=== PATIENT | female | born 1995 | race Two or more races ===

== ENCOUNTER 2019-11-09 10:15 | Observation (INO) | payer MEDICAID ==
[~2019-11-09] VITALS: Ht 154.9 cm; Wt 64.0 kg
[2019-11-09] MEDS ORDERED: PREN-96 PO (10:48)
[2019-11-09] MEDS ORDERED: TERBUTALINE SULFATE 1 MG/ML 1ML VIAL SC ONE ×2 (11:15→11:35)
== END 2019-11-09 12:25 | disposition home or self-care (01) | DRG 563 ==
LOC: LDRP 10:15
PROVIDERS: ADMIT Obstetrics & Gynecology; ATTEND Obstetrics & Gynecology
DX: O60.03 Preterm labor without delivery, third trimester (principal); Z3A.30 30 weeks gestation of pregnancy
CPT/HCPCS: 59025; 81002; 96372; G0378; J3105

== ENCOUNTER 2019-11-15 12:07 | Observation (INO) | payer MEDICAID ==
[~2019-11-15 12:07] MED LIST: PREN-96 PO
[2019-11-15] MEDS ORDERED: NIF10C PO (12:33)
== END 2019-11-15 13:15 | disposition home or self-care (01) | DRG 563 ==
LOC: LDRP 12:07
PROVIDERS: ADMIT Specialist; ATTEND Specialist
DX: O60.03 Preterm labor without delivery, third trimester (principal); Z3A.31 31 weeks gestation of pregnancy
CPT/HCPCS: 59025; 81002; G0378

== ENCOUNTER 2019-11-22 11:00 | Observation (INO) | payer MEDICAID ==
[~2019-11-22 11:00] MED LIST changes: +NIF10C PO
== END 2019-11-22 12:00 | disposition home or self-care (01) | DRG 563 ==
LOC: LDRP 11:00
PROVIDERS: ADMIT Specialist; ATTEND Specialist
DX: O60.03 Preterm labor without delivery, third trimester (principal); Z3A.32 32 weeks gestation of pregnancy
CPT/HCPCS: 59025; 81002; G0378

== ENCOUNTER 2019-11-29 11:50 | Observation (INO) | payer MEDICAID | END 2019-11-29 12:55 | disposition home or self-care (01) | DRG 563 | LOC: LDRP 11:50 | PROVIDERS: ADMIT Obstetrics & Gynecology; ATTEND Obstetrics & Gynecology | DX: O60.03 Preterm labor without delivery, third trimester (principal); Z3A.33 33 weeks gestation of pregnancy; Z87.891 Personal history of nicotine dependence | CPT/HCPCS: 59025; 81002; G0378 ==

== ENCOUNTER 2019-12-06 11:10 | Observation (INO) | payer MEDICAID | END 2019-12-06 12:10 | disposition home or self-care (01) | DRG 563 | LOC: LDRP 11:10 | PROVIDERS: ADMIT Obstetrics & Gynecology; ATTEND Obstetrics & Gynecology | DX: O60.03 Preterm labor without delivery, third trimester (principal); O99.613 Diseases of the digestive system complicating pregnancy, third trimester; K21.9 Gastro-esophageal reflux disease without esophagitis; Z3A.34 34 weeks gestation of pregnancy; Z87.891 Personal history of nicotine dependence | CPT/HCPCS: 81002; G0378 ==